=== PATIENT | male | born 1960 | race Caucasian/White ===

== ENCOUNTER 2017-05-07 02:35 | Inpatient (IN) | payer OTHER ==
[2017-05-07] VITALS (11 sets, daily range): BP systolic 134–183; BP diastolic 72–88; PULSE 62–70; RESP 16–18; TEMP 98.3; Ht 160 cm; Wt 70.0 kg
[~2017-05-07] VITALS: Ht 160 cm; Wt 70.0 kg
[~2017-05-07 02:35] MED LIST: CEPH-443 PO; HYDR-3498 PO; IBUP-1542 PO; MUPI22OI2 TOP
--- NOTE | 2017-05-07 03:41 | QN ---
Documentation Comment HPI: 56-year-old man transported here from [place] for direct admission, boarding in the emergency department. He had unilateral paresthesia and right lower extremity weakness today which resolved shortly after ED arrival, he was diagnosed with TIA [place] emergency department and a CT scan of the brain revealed possible acute infarct. He was not a TPA candidate. He was managed with aspirin orally and admitted, but patient is capitated to [facility] so arrangements were made to be admitted to this hospital. Patient is without neurologic complaints at this time, denies fevers or chills, no headache no blurry vision, no chest pain or shortness of breath. Past medical history: Hypertension Physical exam: GENERAL: Well-developed, well-nourished, well-hydrated, in no apparent distress , looks nontoxic in appearance HEENT: Moist mucous membranes, pink conjunctiva, no cervical spine tenderness or step-off deformities, no goiter, no jaundice or icterus, extraocular movements intact without pain. NEURO: Alert and oriented 3, cranial nerves II through XII intact bilaterally, pupils equal round reactive to light, no focal deficits or facial asymmetry, sensation intact distally Strength 5/5 in upper and lower extremities bilaterally CARDIAC: Regular rate and rhythm, no murmurs rubs or gallops LUNGS: Clear bilaterally no wheezing crackles or stridor ABDOMEN: Soft nontender, no guarding, no rigidity, no rebound, no psoas sign no obturator sign. SKIN: Warm and dry to touch, no abrasions, contusions, or hematomas, no lacerations, no ecchymosis, no target lesions, and without ulcers EXTREMITIES: No clubbing cyanosis or edema, calves are bilaterally symmetrical, no Homans sign, no popliteal cord sign. Distal pulses equal and bilateral PSYCH: Normal affect without agitation or irritability Medical decision making: I reviewed recent workup at [facility]. Patient is without complaints. Diagnostic impression: #1) TIA #2) hypertension LINDA DESAI MD May 07, 2017 03:41
[2017-05-07] MEDS ORDERED: morphine 2 MG INJ IV PRN (06:30)
[2017-05-07] MEDS ORDERED: NACL 0.9% 3 ML SYG IV SCH (06:30)
[2017-05-07] MEDS ORDERED: ONDANSETRON 4 MG INJ IV PRN (06:30)
[2017-05-07] MEDS ORDERED: ACETAMINOPHEN 325 MG TAB PO PRN (06:30)
[2017-05-07] MEDS ORDERED: LORAZEPAM 0.5 MG TAB PO PRN (06:30)
--- NOTE | 2017-05-07 08:19 | HP ---
Date/Time of Note Date/Time of Note DATE: 05/07/17 TIME: 08:13 Assessment/Plan VTE Prophylaxis VTE Prophylaxis Intervention: heparin Assessment/Plan Assessment/Plan ASSESSMENT 56-year-old male with left-sided weakness found to have acute versus subacute CVA. Currently his symptoms have resolved. PLAN Continue telemetry monitoring Aspirin, statin and subcu heparin for DVT prophylaxis MRI of the brain as well as MRA of the head and neck 2D echo Neurology consult Physical therapy and speech/swallow evaluation Check A1c and lipid in the morning HPI/ROS Admit Date/Time Admit Date/Time ROS This is a 56-year-old male who initially presented at [facility] complaining of left -sided weakness. Patient was transferred to [facility] because of insurance reason. CT of the head at [facility] showed subacute lacunar infarct. Currently, patient is denying weakness and on physical examination he does not have any focal weakness, facial droop, slurred speech or other signs of stroke. . PMH/Family/Social Social History Smoking Status: Never smoker Exam/Review of Systems Vital Signs Vitals Vital Signs Date Time Temp Pulse Resp B/P Pulse Ox O2 Delivery O2 Flow Rate FiO2 05/07/17 05:51 65 14 125/85 100 Room Air 05/07/17 04:28 98.3 Exam Constitutional: alert, oriented, well developed Head: atraumatic, normocephalic Eyes: EOMI, PERRL Respiratory: clear to auscultation, normal air movement Cardiovascular: nl pulses, regular rate and rhythm Gastrointestinal: non-tender, soft Extremities: normal pulses Medications Medications Current Medications Lorazepam (Ativan) 0.5 mg Q8H PRN PO ANXIETY; Start 05/07/17 at 06:30 Ondansetron HCl (Zofran Inj) 4 mg Q6H PRN IV NAUSEA AND/OR VOMITING; Start at 06:30 Aspirin (Aspirin) 81 mg DAILY PO ; Start 05/07/17 at 09:00 Acetaminophen (Tylenol Tab) 650 mg Q6H PRN PO PAIN LEVEL 1-3 OR FEVER; Start at 06:30 Morphine Sulfate (morphine) 2 mg Q4H PRN IV PAIN LEVEL 7-10; Start 05/07/17 at 06:30 Famotidine (Pepcid) 20 mg Q12 PO ; Start 05/07/17 at 09:00 Heparin Sodium (Porcine) (Heparin (5000 Units/0.5 ml)) 5,000 unit Q12 SC ; Start 05/07/17 at 09:00 Atorvastatin Calcium (Lipitor) 20 mg QHS PO ; Start 05/07/17 at 21:00 LENORE SUAREZ MD May 07, 2017 08:19
[2017-05-07 08:54] LABS: BASOPHILS % 0.6 % (0.0-2.0); EOSINOPHILS # 0.2 10^3/ul (0.0-0.5); EOSINOPHILS % 2.9 % (0.0-7.0); HEMOGLOBIN 14.4 g/dl (14.0-18.0); LYMPHOCYTES # 2.6 10^3/ul (0.8-2.9); MEAN CORPUSCULAR HEMOGLOBIN 30.3 pg (29.0-33.0); MEAN CORPUSCULAR HGB CONC 33.5 g/dl (32.0-37.0); MEAN CORPUSCULAR VOLUME 90.3 fl (82.0-101.0); MONOCYTE # 0.6 10^3/ul (0.3-0.9); MONOCYTES % 8.9 % (0.0-11.0); NEUTROPHILS % 45.3 % (39.0-77.0); PLATELET COUNT 165 10^3/UL (140-415); RED BLOOD COUNT 4.76 10^6/ul (4.70-6.10); RED CELL DISTRIBUTION WIDTH 12.8 % (11.5-14.5); WHITE BLOOD COUNT 6.3 10^3/ul (4.8-10.8)
[2017-05-07 09:18] LABS: ALBUMIN 4.2 g/dl (3.3-4.9); ALBUMIN/GLOBULIN RATIO 1.13; BILIRUBIN,INDIRECT 0.4 mg/dl (0-1.1); BILIRUBIN,TOTAL 0.4 mg/dl (0.2-1.3); CALCIUM 8.9 mg/dl (8.4-10.2); CHOL/HDL RATIO 3.6 RATIO; CREATININE 0.87 mg/dl (0.61-1.24); MAGNESIUM 2.1 mg/dl (1.7-2.5); POTASSIUM 3.7 mmol/L (3.5-5.1); TOTAL PROTEIN 7.9 g/dl (6.1-8.1)
[2017-05-07] MEDS: ASPIRIN 81 MG TAB PO SCH (10:28)
[2017-05-07] MEDS: FAMOTIDINE 20 MG TAB PO SCH ×2 (10:28→21:07)
[2017-05-07] MEDS: HEPARIN 5,000 UNIT/0.5 ML VIAL SC SCH ×2 (10:33→21:14)
--- NOTE | 2017-05-07 17:13 | RADRPT ---
Echocardiogram Report Patient Name: CHANTEL COOK Gender: Male Date: 1960 Study Date: 07-May-2017 Painter Touch Up: Ata Jones [facility] Location: 3305 Ref. Physician: LENORE SUAREZ Quality: Adequate Procedures: Transthoracic echocardiogram with complete 2D, M-Mode, and doppler examination. Indications: Stroke. 2D/M Mode Doppler Measurement Value Normal Ranges Measurement Value Normal Ranges LVIDd 2D 4.6 3.5 - 5.6 cm AV Peak Nate 1.4 m/sec LVIDs 2D 3.1 2.1 - 4.1 cm AV Peak PG 8.0 mmHg FS 2D 33.8 % LVOT Peak Nate 1.0 m/sec LVPWd 2D 0.9 0.6 - 1.1 cm LVOT Peak PG 4.0 mmHg IVSd 2D 1.0 0.6 - 1.1 cm MV E Peak Nate 0.6 m/sec IVS/LVPW 2D 1.1 MV A Peak Nate 0.5 m/sec AoR Diam 2D 2.9 2.0 - 3.7 cm MV E/A 1.3 LA/Ao 2D 1 0 - 1 MV Decel Time 197 msec EDV 2D 98.6 cm3 MV E/A 1.3 ESV 2D 28.7 cm3 TR Peak Nate 2.3 m/sec LA Dimen 2D 3.3 2.3 - 4.0 cm TR Peak PG 21.0 mmHg RVSP 24.0 mmHg Findings Left Ventricle: Normal left ventricular systolic function. Normal left ventricular cavity size. Normal left ventricular wall thickness. Ejection fraction is visually estimated at 60 %. Tissue Doppler/Mitral Doppler indices are consistent with impaired relaxation (Stage I diastolic dysfunction). Right Ventricle: Normal right ventricular size. Normal right ventricular systolic function. Left Atrium: The left atrium is normal in size. Right Atrium: The right atrium is normal in size. Mitral Valve: Mitral valve leaflets appear mildly thickened. Mild mitral annular calcification. Trace mitral regurgitation. Aortic Valve: Normal appearance of the aortic valve. No significant aortic stenosis or insufficiency. Tricuspid Valve: Normal appearance of the tricuspid valve. Estimated peak PA systolic pressure 24 mmHg. There is mild tricuspid regurgitation. Pulmonic Valve: Pulmonic valve not well visualized. There is trace pulmonic regurgitation. Pericardium: Normal pericardium with no significant pericardial effusion. Aorta: Normal aortic root. IVC: Normal size and normal respiratory collapse consistent with normal right atrial pressure. Conclusions 1.Normal left ventricular systolic function. Normal left ventricular cavity size. Normal left ventricular wall thickness. Ejection fraction is visually estimated at 60 %. Tissue Doppler/Mitral Doppler indices are consistent with impaired relaxation (Stage I diastolic dysfunction). 2.Normal appearance of the aortic valve. No significant aortic stenosis or insufficiency. 3.Normal appearance of the tricuspid valve. Estimated peak PA systolic pressure 24 mmHg. There is mild tricuspid regurgitation. 4.Mitral valve leaflets appear mildly thickened. Mild mitral annular calcification. Trace mitral regurgitation. Electronically Signed By: Yohannes Jacobson 07-May-2017 17:12:41 -0700 Patient Name: CHANTEL COOK Study Date: 07-May-2017 [id number]
[2017-05-07] MEDS ORDERED: DOXA2TAB PO (20:36)
[2017-05-07] MEDS ORDERED: HYD25 PO (20:36)
[2017-05-07] MEDS: ATORVASTATIN 20 MG TAB PO SCH (21:07)
[2017-05-07] MEDS: NIFEdipine (XL) 30 MG TAB PO SCH (21:07)
[2017-05-08] VITALS (13 sets, daily range): BP systolic 116–144; BP diastolic 58–95; PULSE 66–100; RESP 17–19
[2017-05-08] MEDS ORDERED: LORAZEPAM 1 MG TAB ONE (03:00)
[2017-05-08 06:39] LABS: BASOPHILS % 0.5 % (0.0-2.0); EOSINOPHILS # 0.1 10^3/ul (0.0-0.5); HEMATOCRIT 42.9 % (42.0-52.0); HEMOGLOBIN 14.9 g/dl (14.0-18.0); LYMPHOCYTES % 32.8 % (15.0-51.0); MEAN CORPUSCULAR HEMOGLOBIN 30.9 pg (29.0-33.0); MEAN CORPUSCULAR HGB CONC 34.7 g/dl (32.0-37.0); MEAN PLATELET VOLUME 10.3 fl (7.4-10.4); MONOCYTE # 0.5 10^3/ul (0.3-0.9); MONOCYTES % 8.7 % (0.0-11.0); NEUTROPHILS % 55.8 % (39.0-77.0); PLATELET COUNT 179 10^3/UL (140-415); RED BLOOD COUNT 4.82 10^6/ul (4.70-6.10); RED CELL DISTRIBUTION WIDTH 12.6 % (11.5-14.5); WHITE BLOOD COUNT 6.1 10^3/ul (4.8-10.8)
[2017-05-08 07:14] LABS: CALCIUM 8.8 mg/dl (8.4-10.2); CREATININE 0.84 mg/dl (0.61-1.24); MAGNESIUM 2.1 mg/dl (1.7-2.5); PHOSPHORUS 3.1 mg/dl (2.5-4.9); POTASSIUM 3.6 mmol/L (3.5-5.1)
[2017-05-08] MEDS: FAMOTIDINE 20 MG TAB PO SCH ×2 (08:49→20:32)
[2017-05-08] MEDS: NIFEdipine (XL) 30 MG TAB PO SCH (08:49)
[2017-05-08] MEDS: ASPIRIN 81 MG TAB PO SCH (08:49)
[2017-05-08] MEDS: HEPARIN 5,000 UNIT/0.5 ML VIAL SC SCH ×2 (08:50→20:36)
--- NOTE | 2017-05-08 10:51 | CONS ---
Date/Time of Note Date/Time of Note DATE: 05/08/17 TIME: 10:47 Assessment/Plan Assessment/Plan Chief Complaint/Hosp Course 56 year old male tx for work up of lacunar infarction. Recommend: ASA 81 mg daily MRI Brain w/o contrast MRA Head/Neck without contrast ECHO w bubble FLP, HBA1C maintain normotensive blood pressure DVT ppx Problems: Consultation Date/Type/Reason Admit Date/Time 05/07/17 Date of Consultation: May 07, 2017 Type of Consultation: Neurology Reason for Consultation CVA evaluation Referring Provider: DARIAN HARTMANN HVAC R TECH Hx of Present Illness 56 year old male admitted from [facility] with left sided weakness with acute vs. sub-acute CVA pending further imaging for work up. 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, DTR's symmetric, nl mental status, nl speech, nl strength Results Result Diagram: 05/08/17 0538 05/08/17 0538 Results 24 hrs Laboratory Tests Test 05/08/17 05:38 White Blood Count 6.1 Red Blood Count 4.82 Hemoglobin 14.9 Hematocrit 42.9 Mean Corpuscular Volume 89.0 Mean Corpuscular Hemoglobin 30.9 Mean Corpuscular Hemoglobin Concent 34.7 Red Cell Distribution Width 12.6 Platelet Count 179 Mean Platelet Volume 10.3 Neutrophils % 55.8 Lymphocytes % 32.8 Monocytes % 8.7 Eosinophils % 2.0 Basophils % 0.5 Nucleated Red Blood Cells % 0.0 Neutrophils # (Manual) 3 Lymphocytes # 2.0 Monocytes # 0.5 Eosinophils # 0.1 Basophils # 0.0 Nucleated Red Blood Cells # 0.0 Sodium Level 139 Potassium Level 3.6 Chloride Level 102 Carbon Dioxide Level 27 Anion Gap 14 Blood Urea Nitrogen 15 Creatinine 0.84 Glucose Level 108 Calcium Level 8.8 Phosphorus Level 3.1 Magnesium Level 2.1 Medications Medications Current Medications Lorazepam (Ativan) 0.5 mg Q8H PRN PO ANXIETY Last administered on 05/08/17t 03: 03; Admin Dose 0.5 MG; Start 05/07/17 at 06:30 Ondansetron HCl (Zofran Inj) 4 mg Q6H PRN IV NAUSEA AND/OR VOMITING; Start at 06:30 Aspirin (Aspirin) 81 mg DAILY PO Last administered on 05/08/17 08:49; Admin Dose 81 MG; Start 05/07/17 at 09:00 Acetaminophen (Tylenol Tab) 650 mg Q6H PRN PO PAIN LEVEL 1-3 OR FEVER; Start at 06:30 Morphine Sulfate (morphine) 2 mg Q4H PRN IV PAIN LEVEL 7-10; Start 05/07/17 at 06:30 Famotidine (Pepcid) 20 mg Q12 PO Last administered on 05/08/17 08:49; Admin Dose 20 MG; Start 05/07/17 at 09:00 Heparin Sodium (Porcine) (Heparin (5000 Units/0.5 ml)) 5,000 unit Q12 SC Last administered on 05/08/17 08:50; Admin Dose 5,000 UNIT; Start 05/07/17 at 09:00 Atorvastatin Calcium (Lipitor) 20 mg QHS PO Last administered on 05/07/17 21: 07; Admin Dose 20 MG; Start 05/07/17 at 21:00 Nifedipine (Procardia Xl) 30 mg BID PO Last administered on 05/08/17 08:49; Admin Dose 30 MG; Start 05/07/17 at 21:00 LOIS NGUYEN MD May 08, 2017 10:51
--- NOTE | 2017-05-08 10:59 | PN ---
Date/Time of Note Date/Time of Note DATE: 05/08/17 TIME: 10:54 Assessment/Plan VTE Prophylaxis VTE Prophylaxis Intervention: heparin, SCD's Lines/Catheters IV Catheter Type (from Nrs): Saline Lock Urinary Cath still in place: No Assessment/Plan Assessment/Plan 56-year-old male with left-sided weakness found to have acute versus subacute CVA. Currently his symptoms have resolved.- possible TIA Accelerated HTN PLAN Tele monitoring, troponin negative MRI brain today Bp controlled with nifedipine but nifedipine not covered by his Insurance.. so I will switch him to amlodipine 10mg paily Resume his home medication of doxazosin and HCTZ will follow up pt will stay in hospital today Subjective 24 Hr Interval Summary Free Text/Dictation BP controlled with Nifedipine , no chest pain, Plan for MRI today Exam/Review of Systems Vital Signs Vitals Vital Signs Date Time Temp Pulse Resp B/P Pulse Ox O2 Delivery O2 Flow Rate FiO2 05/08/17 08:15 97.9 75 17 131/79 97 05/07/17 21:01 Room Air Exam Constitutional: alert, oriented, well developed Head: atraumatic, normocephalic Eyes: EOMI, PERRL Respiratory: clear to auscultation, normal air movement Cardiovascular: nl pulses, regular rate and rhythm Gastrointestinal: non-tender, soft Extremities: normal pulses Results Result Diagram: 05/08/17 0538 05/08/17 0538 Results 24 hrs Laboratory Tests Test 05/08/17 05:38 White Blood Count 6.1 Red Blood Count 4.82 Hemoglobin 14.9 Hematocrit 42.9 Mean Corpuscular Volume 89.0 Mean Corpuscular Hemoglobin 30.9 Mean Corpuscular Hemoglobin Concent 34.7 Red Cell Distribution Width 12.6 Platelet Count 179 Mean Platelet Volume 10.3 Neutrophils % 55.8 Lymphocytes % 32.8 Monocytes % 8.7 Eosinophils % 2.0 Basophils % 0.5 Nucleated Red Blood Cells % 0.0 Neutrophils # (Manual) 3 Lymphocytes # 2.0 Monocytes # 0.5 Eosinophils # 0.1 Basophils # 0.0 Nucleated Red Blood Cells # 0.0 Sodium Level 139 Potassium Level 3.6 Chloride Level 102 Carbon Dioxide Level 27 Anion Gap 14 Blood Urea Nitrogen 15 Creatinine 0.84 Glucose Level 108 Calcium Level 8.8 Phosphorus Level 3.1 Magnesium Level 2.1 Medications Medications Current Medications Lorazepam (Ativan) 0.5 mg Q8H PRN PO ANXIETY Last administered on 05/08/17 03: 03; Admin Dose 0.5 MG; Start 05/07/17 at 06:30 Ondansetron HCl (Zofran Inj) 4 mg Q6H PRN IV NAUSEA AND/OR VOMITING; Start at 06:30 Aspirin (Aspirin) 81 mg DAILY PO Last administered on 05/08/17 08:49; Admin Dose 81 MG; Start 05/07/17 at 09:00 Acetaminophen (Tylenol Tab) 650 mg Q6H PRN PO PAIN LEVEL 1-3 OR FEVER; Start at 06:30 Morphine Sulfate (morphine) 2 mg Q4H PRN IV PAIN LEVEL 7-10; Start 05/07/17 at 06:30 Famotidine (Pepcid) 20 mg Q12 PO Last administered on 05/08/17 08:49; Admin Dose 20 MG; Start 05/07/17 at 09:00 Heparin Sodium (Porcine) (Heparin (5000 Units/0.5 ml)) 5,000 unit Q12 SC Last administered on 05/08/17 08:50; Admin Dose 5,000 UNIT; Start 05/07/17 at 09:00 Atorvastatin Calcium (Lipitor) 20 mg QHS PO Last administered on 05/07/17 21: 07; Admin Dose 20 MG; Start 05/07/17 at 21:00 Nifedipine (Procardia Xl) 30 mg BID PO Last administered on 05/08/17 08:49; Admin Dose 30 MG; Start 05/07/17 at 21:00 Doxazosin Mesylate (Cardura) 2 mg DAILY PO ; Start 05/09/17 at 09:00; Status UNV Hydrochlorothiazide (Hydrochlorothiazide) 25 mg DAILY PO ; Start 05/09/17 at 09: 00; Status UNV VANESSA CORONA MD May 08, 2017 10:59
[2017-05-08] MEDS ORDERED: DOXAZOSIN 2 MG TAB PO SCH (12:00)
[2017-05-08] MEDS: HYDROCHLOROTHIAZIDE 25 MG TAB PO SCH (12:35)
--- NOTE | 2017-05-08 18:23 | RADRPT ---
PROCEDURE: MR Brain without contrast. CLINICAL INDICATION: Unspecified neurologic abnormality. Evaluate for nonacute stroke. TECHNIQUE: Sagittal and axial T1 weighted, axial T2 weighted, coronal GRE, axial diffusion weighte d with ADC mapping, and axial FLAIR imaging without contrast. COMPARISON: None FINDINGS: The study is moderately limited by patient motion. Some sequences were repeated. No diffusion weig hted abnormalities are seen to suggest the presence of acute ischemia or recent infarct. No hypoint ense signal abnormalities are seen on the GRE images to suggest the presence of blood degradation pr oducts. There is no evidence of intracranial hemorrhage, mass effect, or midline shift. No extra-axi al fluid collections are seen. There is probable mild cortical atrophy with areas of abnormal FLAIR / T2 signal in the subcortical and periventricular white matter. While some of these changes may be due to chronic microvascular ischemic change, there are several lesions particularly in the brambila r adiata which are somewhat linear and horizontal in orientation which suggests possible demyelinating disease. The largest of these is in the right centrum semiovale posteriorly and measures 10 x 5 mm . Signal intensity of the brainstem and cerebellum is unremarkable. The globes appear symmetric and intact. Normal flow voids are visible in the proximal intracranial arteries and dural sinuses, indicating patency. There is mild mucoperiosteal thickening of the ethmoids.. IMPRESSION: Mild atrophy and areas of abnormal signal in the subcortical and periventricular white matter. Whil e some of these may be due to chronic microvascular ischemic change, the appearance of several of th e lesions suggests possible demyelinating disease such as MS. Repeat study including postcontrast i maging on the the patient is able to hold still may be helpful. Comparison to any prior MRI studies would also be helpful. RPTAT: [facility]BE Physician Jacoby Date Time Electronically viewed and signed by Physician Jacoby on 05/08/2017 18:22 LE/
--- NOTE | 2017-05-08 18:25 | RADRPT ---
PROCEDURE: MRA Brain. CLINICAL INDICATION: Unspecified neurologic disturbance. Transit ischemic attack. TECHNIQUE: 3-D [id number] MR angiography of the intracranial vasculature was performed without contrast. Multiplanar reformatted and 3-D maximum intensity projection reconstructed images were t hen performed. COMPARISON: None FINDINGS: The study is severely degraded by patient motion. The more distal branches of the anterior and midd le cerebral arteries are suboptimally seen. Left vertebral artery dominance is seen. Anatomy is ot herwise unremarkable. No definite aneurysm or stenosis. Small caliber left A1 segment. Note shoul d be made that small, less than 3 mm, or thrombosed aneurysms may not be well seen with this techniq ue. IMPRESSION: Significantly limits study without definite aneurysm or significant stenosis. RPTAT: [facility] Physician Jacoby Date Time Electronically viewed and signed by Veronica Cerrato Physician on 05/08/2017 18:25 LE/
--- NOTE | 2017-05-08 18:31 | RADRPT ---
PROCEDURE: MRA Neck without contrast. CLINICAL INDICATION: Transient ischemic attack TECHNIQUE: MRA of the major cervical arteries was performed utilizing axial 2D time of flight and localized 3-D [id number] to the carotid bifurcations. No IV contrast was given as ordered. 3-D maximum intensity projection reconstructions. NASCET criteria were used to measure stenoses where i ndicated. COMPARISON: No prior studies are available for comparison. FINDINGS: The study is markedly limited by patient motion. No gross high-grade carotid stenosis is seen. The re is left vertebral artery dominance without gross occlusion. IMPRESSION: Significantly limited study due to patient motion. Correlation with carotid ultrasound may be helpf ul. No gross carotid or vertebral artery stenosis or occlusion. RPTAT: [facility] Physician Jacoby Date Time Electronically viewed and signed by Physician Jacoby on 05/08/2017 18:31 LE/
[2017-05-08] MEDS: ATORVASTATIN 20 MG TAB PO SCH (20:32)
[2017-05-09] VITALS (7 sets, daily range): BP systolic 122–130; BP diastolic 67–72; PULSE 71–95; RESP 17–19
[2017-05-09] MEDS: ASPIRIN 81 MG TAB PO SCH (08:50)
[2017-05-09] MEDS: HYDROCHLOROTHIAZIDE 25 MG TAB PO SCH (08:51)
[2017-05-09] MEDS: FAMOTIDINE 20 MG TAB PO SCH (08:52)
[2017-05-09] MEDS: HEPARIN 5,000 UNIT/0.5 ML VIAL SC SCH (08:53)
[2017-05-09] MEDS ORDERED: HYDROCHLOROTHIAZIDE 25 MG TAB PO SCH (09:00)
[2017-05-09] MEDS ORDERED: DOXAZOSIN 2 MG TAB PO SCH (09:00)
[2017-05-09] MEDS ORDERED: AMLODIPINE 10 MG TAB PO SCH (09:00)
--- NOTE | 2017-05-09 13:42 | PN ---
Date/Time of Note Date/Time of Note DATE: 05/09/17 TIME: 13:41 Assessment/Plan VTE Prophylaxis VTE Prophylaxis Intervention: SCD's Lines/Catheters IV Catheter Type (from Nrs): Saline Lock Urinary Cath still in place: No Assessment/Plan Assessment/Plan acute versus subacute CVA. Currently his symptoms have resolved.- possible TIA Accelerated HTN PLAN Tele monitoring, troponin negative MRI brain negative for acute findings Bp controlled with nifedipine but nifedipine not covered by his Insurance.. so I will switch him to amlodipine 10mg paily Resume his home medication of doxazosin and HCTZ will follow up Exam/Review of Systems Vital Signs Vitals Vital Signs Date Time Temp Pulse Resp B/P Pulse Ox O2 Delivery O2 Flow Rate FiO2 05/09/17 12:17 98.6 92 18 122/72 97 05/07/17 21:01 Room Air Results Result Diagram: 05/08/17 0538 05/08/17 0538 Medications Medications Current Medications Lorazepam (Ativan) 0.5 mg Q8H PRN PO ANXIETY Last administered on 05/08/17 03: 03; Admin Dose 0.5 MG; Start 05/07/17 at 06:30 Ondansetron HCl (Zofran Inj) 4 mg Q6H PRN IV NAUSEA AND/OR VOMITING; Start at 06:30 Aspirin (Aspirin) 81 mg DAILY PO Last administered on 05/09/17 08:50; Admin Dose 81 MG; Start 05/07/17 at 09:00 Acetaminophen (Tylenol Tab) 650 mg Q6H PRN PO PAIN LEVEL 1-3 OR FEVER; Start at 06:30 Morphine Sulfate (morphine) 2 mg Q4H PRN IV PAIN LEVEL 7-10; Start 05/07/17 at 06:30 Famotidine (Pepcid) 20 mg Q12 PO Last administered on 05/09/17 08:52; Admin Dose 20 MG; Start 05/07/17 at 09:00 Heparin Sodium (Porcine) (Heparin (5000 Units/0.5 ml)) 5,000 unit Q12 SC Last administered on 05/09/17 08:53; Admin Dose 5,000 UNIT; Start 05/07/17 at 09:00 Atorvastatin Calcium (Lipitor) 20 mg QHS PO Last administered on 8/22/17at 20: 32; Admin Dose 20 MG; Start 05/07/17 at 21:00 Doxazosin Mesylate (Cardura) 2 mg DAILY@21 PO Last administered on 05/08/17 12 :34; Admin Dose 2 MG; Start 05/08/17 at 12:00 Hydrochlorothiazide (Hydrochlorothiazide) 25 mg DAILY PO Last administered on 08:51; Admin Dose 25 MG; Start 05/08/17 at 12:00 Amlodipine Besylate (Norvasc) 10 mg DAILY PO Last administered on 05/09/17 08: 51; Admin Dose 10 MG; Start 05/09/17 at 09:00 VANESSA CORONA MD May 09, 2017 13:42
--- NOTE | 2017-05-09 13:43 | PDOCDIS ---
Discharge Instructions CONDITION Patient Condition: Good HOME CARE INSTRUCTIONS: Special Diet: low fat, low salt,diet ACTIVITY: Activity Restrictions: Slowly Increase Activity Rest between Activity Avoid heavy lifting Avoid Heavy Housework FOLLOW UP/APPOINTMENTS Follow-up Plan follow up with his own PMD through HMO Insurance in 1-2 week after discharge VANESSA CORONA MD May 09, 2017 13:43
[2017-05-09] MEDS ORDERED: ASPI81TA3 PO (13:44)
[2017-05-09] MEDS ORDERED: ATOR20TA65 PO (13:44)
[2017-05-09] MEDS ORDERED: AMLO-147 PO (13:44)
--- NOTE | 2017-05-09 14:49 | CONS ---
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, DTR's symmetric, nl mental status, nl speech, nl strength Results/Medications Result Diagram: 05/08/17 0538 05/08/17 0538 Medications Current Medications Lorazepam (Ativan) 0.5 mg Q8H PRN PO ANXIETY Last administered on 05/08/17 03: 03; Admin Dose 0.5 MG; Start 05/07/17 at 06:30 Ondansetron HCl (Zofran Inj) 4 mg Q6H PRN IV NAUSEA AND/OR VOMITING; Start at 06:30 Aspirin (Aspirin) 81 mg DAILY PO Last administered on 05/09/17 08:50; Admin Dose 81 MG; Start 05/07/17 at 09:00 Acetaminophen (Tylenol Tab) 650 mg Q6H PRN PO PAIN LEVEL 1-3 OR FEVER; Start at 06:30 Morphine Sulfate (morphine) 2 mg Q4H PRN IV PAIN LEVEL 7-10; Start 05/07/17 at 06:30 Famotidine (Pepcid) 20 mg Q12 PO Last administered on 05/09/17 08:52; Admin Dose 20 MG; Start 05/07/17 at 09:00 Heparin Sodium (Porcine) (Heparin (5000 Units/0.5 ml)) 5,000 unit Q12 SC Last administered on 05/09/17 08:53; Admin Dose 5,000 UNIT; Start 05/07/17 at 09:00 Atorvastatin Calcium (Lipitor) 20 mg QHS PO Last administered on 05/08/17 20: 32; Admin Dose 20 MG; Start 05/07/17 at 21:00 Doxazosin Mesylate (Cardura) 2 mg DAILY@21 PO Last administered on 05/08/17 12 :34; Admin Dose 2 MG; Start 05/08/17 at 12:00 Hydrochlorothiazide (Hydrochlorothiazide) 25 mg DAILY PO Last administered on 08:51; Admin Dose 25 MG; Start 05/08/17 at 12:00 Amlodipine Besylate (Norvasc) 10 mg DAILY PO Last administered on 05/09/17 08: 51; Admin Dose 10 MG; Start 05/09/17 at 09:00 Assessment/Plan Chief Complaint/Hosp Course 56 year old male tx for work up of lacunar infarction. MRI Brain shows chronic microvascular changes no acute infarct. MRA Head/Neck is negative. Recommend: ASA 81 mg daily FLP, HBA1C wnl maintain normotensive blood pressure , BP meds adjusted doubt MRI shows a demyelinating process more likely c/w chronic microvascular changes should follow up w Neurology as outpatient upon dc Problems: LOIS NGUYEN MD May 09, 2017 14:49
== END 2017-05-09 14:45 | disposition home or self-care (01) | DRG 69 ==
LOC: E/R 02:35 → MS3 02:55 → MS4 20:25
PROVIDERS: ADMIT Internal Medicine; ATTEND Internal Medicine
DX: G45.9 Transient cerebral ischemic attack, unspecified (principal); I10 Essential (primary) hypertension; Z79.82 Long term (current) use of aspirin
CPT/HCPCS: 70544; 70549; 70551; 80048; 80053; 80061; 82962; 83036; 83735; 84100; 85025; 92610; 93306; J1644; J2270

== ENCOUNTER 2017-05-11 13:58 | Inpatient (IN) | payer OTHER ==
[~2017-05-11] VITALS: Ht 167.6 cm; Wt 78.8 kg
[~2017-05-11 13:58] MED LIST changes: +AMLO-147 PO; +ASPI81TA3 PO; +ATOR20TA65 PO; +DOXA2TAB PO; +HYD25 PO
--- NOTE | 2017-05-11 14:25 | ERA ---
ER Documentation Chief Complaint Date/Time DATE: 05/11/17 TIME: 14:22 Chief Complaint pt bib family with c/o left arm numbness, just nm'ed for same HPI Patient is a 56-year-old male who presents with sudden onset, constant, moderate left arm numbness for 30 minutes. The patient states that he had the same symptoms 4 days ago and was admitted to the hospital for stroke workup. He was diagnosed as having high cholesterol. The patient has history of hypertension. He denies weakness of the left arm but states that it feels heavy. He also states that both of his legs feel heavy and slightly numb. He states his symptoms started while he was exercising. He denies chest pain, shortness of breath. He denies slurred speech, headache, blurry or double vision. ROS All systems reviewed and are negative except as per history of present illness. Medications Home Meds Reported Medications Atorvastatin Calcium* (Atorvastatin Calcium*) 20 Mg Tablet, 20 MG PO QHS, #30 TAB 05/11/17 Aspirin (Low Dose Aspirin) 81 Mg Tablet.dr, 81 MG PO DAILY, #30 TAB 05/11/17 Amlodipine Besylate* (Amlodipine Besylate*) 10 Mg Tablet, 10 MG PO DAILY, #30 TAB 05/11/17 Discontinued Reported Medications Doxazosin Mesylate* (Doxazosin Mesylate*) 2 Mg Tablet, 2 MG PO DAILY, TAB 05/07/17 Hydrochlorothiazide* (Hydrochlorothiazide*) 25 Mg Tab, 25 MG PO DAILY, #30 TAB 05/07/17 Discontinued Scripts Aspirin (Aspirin) 81 Mg Chew, 81 MG PO DAILY, #100 TAB Prov:VANESSA CORONA MD 05/09/17 Atorvastatin Calcium (Atorvastatin Calcium) 20 Mg Tablet, 20 MG PO QHS, #90 TAB Prov:VANESSA CORONA MD 05/09/17 Amlodipine Besylate* (Amlodipine Besylate*) 10 Mg Tablet, 10 MG PO DAILY, #90 TAB Prov:VANESSA CORONA MD 05/09/17 Cephalexin* (Keflex*) 500 Mg Capsule, 500 MG PO QID for 7 Days, CAP Prov:MARS EVANS PA-C 06/04/15 Ibuprofen* (Motrin*) 600 Mg Tab, 600 MG PO Q6, #20 TAB Prov:MARS EVANS PA-C 06/04/15 Mupirocin* (Bactroban*) 2% -22 Gram Oint...g., 1 APPLIC TOP BID for 7 Days, EA Prov:IZZY MCKNIGHT PA-C 05/25/15 Hydrocodone Bit-Acetaminophen* ([place]*) 5-325 Mg Tab, 1 TAB PO Q6 Y for PAIN, # 20 TAB Prov:IZZY MCKNIGHT PA-C 05/25/15 Cephalexin* (Keflex*) 500 Mg Capsule, 500 MG PO QID for 10 Days, CAP Prov:IZZY MCKNIGHT PA-C 05/25/15 Allergies Allergies: Coded Allergies: No Known Allergy (Unverified , 05/11/17) PMhx/Soc Past medical history: Hyperlipidemia, hypertension, TIA Past surgical history: Denies Social history: Denies tobacco, alcohol or illicit drugs. History of Surgery: Yes (penile prothesis) Anesthesia Reaction: No Hx Neurological Disorder: No Hx Respiratory Disorders: No Hx Cardiac Disorders: Yes (HTN) Hx Psychiatric Problems: No Hx Miscellaneous Medical Probl: Yes (HIGH CHOLESTEROL) Hx Alcohol Use: No Hx Substance Use: No Hx Tobacco Use: No Smoking Status: Former smoker FmHx Family History: No coronary disease, No diabetes Physical Exam Vitals Vital Signs Date Time Temp Pulse Resp B/P Pulse Ox O2 Delivery O2 Flow Rate FiO2 05/11/17 16:49 79 17 128/81 99 Room Air 05/11/17 14:03 99.3 103 18 133/80 98 Physical Exam Const: Alert, no acute distress Head: Atraumatic Eyes: Normal Conjunctiva, no pallor, no icterus ENT: Normal External Ears, Nose and Mouth. Mucous membranes moist Neck: Full range of motion..~ No meningismus. Resp: Clear to auscultation bilaterally, no wheezes, no rales Cardio: Regular rate and rhythm, no murmurs Abd: Soft, non tender, non distended. Skin: No petechiae or rashes Back: No midline or flank tenderness Ext: No cyanosis, or edema Neur: Awake and alert, cranial nerves II through XII intact bilaterally, strength intact in all muscle groups of bilateral upper and lower extremities, diminished sensation to light touch throughout the left arm, no pronator drift, no dysmetria Psych: Normal Mood and Affect Result Diagram: 05/11/17 1430 05/11/17 1430 Results 24 hrs Laboratory Tests Test 05/11/17 14:30 05/11/17 14:53 White Blood Count 6.510^3/ul Red Blood Count 4.7810^6/ul Hemoglobin 14.8g/dl Hematocrit 42.2% Mean Corpuscular Volume 88.3fl Mean Corpuscular Hemoglobin 31.0pg Mean Corpuscular Hemoglobin Concent 35.1g/dl Red Cell Distribution Width 12.3% Platelet Count 45110^3/UL Mean Platelet Volume 9.8fl Neutrophils % 62.6% Lymphocytes % 27.6% Monocytes % 8.4% Eosinophils % 0.6% Basophils % 0.5% Nucleated Red Blood Cells % 0.0/100WBC Neutrophils # (Manual) 4.110^3/ul Lymphocytes # 1.810^3/ul Monocytes # 0.510^3/ul Eosinophils # 0.010^3/ul Basophils # 0.010^3/ul Nucleated Red Blood Cells # 0.010^3/ul Prothrombin Time 12.4Sec Prothrombin Time Ratio 1.0 INR International Normalized Ratio 0.92 Activated Partial Thromboplast Time 31.8Sec Sodium Level 141mmol/L Potassium Level 3.8mmol/L Chloride Level 98mmol/L Carbon Dioxide Level 28mmol/L Anion Gap 19 Blood Urea Nitrogen 20mg/dl Creatinine 0.89mg/dl Glucose Level 110mg/dl Calcium Level 9.4mg/dl Troponin I < 0.012ng/ml Bedside Glucose 115mg/dL Current Medications Medications (Trade) Dose Ordered Sig/Tina Route PRN Reason Start Time Stop Time Status Last Admin Dose Admin Aspirin (Aspirin) 162 mg ONCE ONCE PO 05/11/17 15:00 05/11/17 15:01 DC 05/11/17 15:08 Ondansetron HCl (Zofran Inj) 4 mg ER BRIDGE PRN IV NAUSEA AND/OR VOMITING 05/11/17 17:00 05/12/17 16:59 Acetaminophen (Tylenol Tab) 650 mg ER BRIDGE PRN PO MILD PAIN/FEVER 05/11/17 17:00 05/12/17 16:59 IV Flush (NS 3 ml) 3 ml PER PROTOCOL IV 05/11/17 17:30 Acetaminophen/ Hydrocodone Bitart ([place] (5/325)) 1 tab Q6H PRN PO MODERATE PAIN LEVEL 4-6 05/11/17 17:30 Docusate Sodium (Colace) 100 mg Q12H PRN PO CONSTIPATION 05/11/17 17:30 Magnesium Hydroxide (Milk Of Mag) 30 ml DAILY PRN PO CONSTIPATION 05/11/17 17:30 Bisacodyl (Dulcolax) 5 mg DAILY PRN PO CONSTIPATION 05/11/17 17:30 Enoxaparin Sodium (Lovenox) 40 mg DAILY SC 05/12/17 09:00 Procedures/MDM EKG read by me: Time 1443, rate 96 Rhythm: Normal sinus [place]: Normal Intervals: Normal ST-T waves: no ischemic changes Ectopy: No Q-waves: No Impression: No evidence of ischemia or arrhythmia MDM: Patient is a 56-year-old male recently admitted for TIA with symptoms of left arm and leg numbness. He had an MRI that showed possible demyelinating disease with abnormal white matter signal. He had a MRA that was unremarkable but limited by motion. He had an echo without bubble study that was unremarkable. The patient presented acutely with left arm numbness today. He reports that his symptoms had completely resolved prior to discharge. Code stroke was called and the patient was evaluated by tele-neurology. Tele- neurology did not feel that the patient was a TPA candidate and suspected that the patient has demyelinating disease. He states that the patient could have waxing and waning symptoms in the setting of exertion with demyelinating disease. The patient's symptoms resolved approximately 30 minutes after arriving in the ER, and on reassessment he is asymptomatic. The patient is not on anticoagulation. He was given aspirin. I cannot exclude the possibility of a recurrent TIA, and I believe that the patient would benefit from a bubble study and consideration of anticoagulation until his diagnosis is established. I will admit him for further workup of TIA as well as possible demyelinating disease. Departure Diagnosis: Primary Impression: Left arm numbness Additional Impression: TIA (transient ischemic attack) Qualified Code: G45.9 - Transient cerebral ischemia, unspecified type Condition: DANIEL Huerta MD May 11, 2017 14:22
[2017-05-11 14:40] LABS: BASOPHILS % 0.5 % (0.0-2.0); EOSINOPHILS % 0.6 % (0.0-7.0); HEMATOCRIT 42.2 % (42.0-52.0); HEMOGLOBIN 14.8 g/dl (14.0-18.0); LYMPHOCYTES # 1.8 10^3/ul (0.8-2.9); LYMPHOCYTES % 27.6 % (15.0-51.0); MEAN CORPUSCULAR HGB CONC 35.1 g/dl (32.0-37.0); MEAN CORPUSCULAR VOLUME 88.3 fl (82.0-101.0); MEAN PLATELET VOLUME 9.8 fl (7.4-10.4); MONOCYTE # 0.5 10^3/ul (0.3-0.9); MONOCYTES % 8.4 % (0.0-11.0); NEUTROPHILS % 62.6 % (39.0-77.0); PLATELET COUNT 189 10^3/UL (140-415); RED BLOOD COUNT 4.78 10^6/ul (4.70-6.10); RED CELL DISTRIBUTION WIDTH 12.3 % (11.5-14.5); WHITE BLOOD COUNT 6.5 10^3/ul (4.8-10.8)
--- NOTE | 2017-05-11 14:40 | RADRPT ---
PROCEDURE: Noncontrast CT Head. CLINICAL INDICATION: Code stroke. Acute neurologic deficit. TECHNIQUE: Noncontrast CT of the head was obtained. The administered radiation dose was CTDI vol = 44.4 mGy, DLP = 630.2 mGy-cm. One or more of the following dose reduction techniques were used: Auto mated exposure control, Adjustment of the mA and/or kV according to patient size, or Use of iterativ e reconstruction technique. COMPARISON: There are no similar studies submitted for comparison. Noncontrast MRI of the brain from May 08, 2017. FINDINGS: The ventricles and sulci are within normal limits. There is mild to moderate periventricular hypoatt enuation which is nonspecific but may related to early chronic microvascular changes. There are mild vascular calcifications within the intracranial carotid arteries. There is a probabl e right posterior brambila perivascular space. There is prominent retrocerebellar CSF space suggesting a gabriela cisterna magna or arachnoid cyst whic h are benign findings. There is no loss of lora-white differentiation to suggest acute territorial infarction. There is no acute intracranial hemorrhage. There is no mass effect. No midline shift is identified. The orbits are within normal limits. The paranasal sinuses are well aerated. No destructive osseous lesion is identified. IMPRESSION: No significant change given differences in technique. 1. No loss of lora-white differentiation to suggest acute territorial infarction. Consider CTA of t he head/neck or noncontrast MRI of the brain as clinically warranted. 2. No acute intracranial hemorrhage. 3. Right posterior brambila radiata perivascular space. 4. Mild moderate periventricular hypoattenuation which is nonspecific but may related to early chron ic microvascular changes versus other white matter etiologies. Further findings as detailed above. These findings were discussed with [<Rafa Harris>] on 05/11/2017 at 2:35 PM. RPTAT: PP .Sanjay Oliva MD, Date Time Electronically viewed and signed by .Sanjay Oliva MD, on 05/11/2017 14:39 .F/
[2017-05-11 14:51] LABS: INR 0.92; PROTIME 12.4 Sec (12.2-14.2)
[2017-05-11 14:52] LABS: PARTIAL THROMBOPLASTIN TIME 31.8 Sec (25.0-35.0)
[2017-05-11 14:53] LABS: ANION GAP 19 (8-16); BLOOD UREA NITROGEN 20 mg/dl (7-20); CALCIUM 9.4 mg/dl (8.4-10.2); CARBON DIOXIDE 28 mmol/L (21-31); CHLORIDE 98 mmol/L (97-110); CREATININE 0.89 mg/dl (0.61-1.24); GLUCOSE 110 mg/dl (70-220); POTASSIUM 3.8 mmol/L (3.5-5.1); SODIUM 141 mmol/L (135-144)
--- NOTE | 2017-05-11 14:57 | RADRPT ---
PROCEDURE: XR Chest. CLINICAL INDICATION: Altered mental status TECHNIQUE: Single frontal view of the chest was obtained COMPARISON: None FINDINGS: The heart and mediastinum are within normal limits. The lungs are clear. There is no pleural effusion or pneumothorax. The bones and soft tissue show no acute change. IMPRESSION: No definite abnormalities are identified. RPTAT:AAJJ Karlos Robbins Physician Date Time Electronically viewed and signed by Karlos Robbins Physician on 05/11/2017 14:56 /
[2017-05-11] MEDS ORDERED: AMLO-147 PO (14:58)
[2017-05-11] MEDS ORDERED: ATOR20TA38 PO (14:59)
[2017-05-11] MEDS ORDERED: ASPI-664 PO (14:59)
[2017-05-11] MEDS ORDERED: ASPIRIN 81 MG TAB PO ONE (15:00)
[2017-05-11 15:06] LABS: TROPONIN-I < 0.012 ng/ml (0.00-0.12)
--- NOTE | 2017-05-11 15:32 | STROKE ---
Date/Time of Note Date/Time of Note DATE: 05/11/17 TIME: 17:23 Patient Information General Patient location: emergency Arrival Date Onset Date: May 11, 2017 Age 56 Gender male Weight 77.5 kg Clinical Presentation 56 YO M with left arm and RIGHT leg tingling/numbess today while exercising that has since resolved. He was in the ED 4 days ago after L arm numbness and got MRI Brain without contrast with concern for demyelinating disease. He also got MRA head without evidence on formal report of artery of percheron. His left arm and RIGHT leg tingling have resolved. He was to see a Neurologist for MS work up but has not yet. POC Glucose Glucose Result Bedside Glucose - 72 Hours Test 05/11/17 14:53 Bedside Glucose 115mg/dL (70-220) Vital Signs Vital Signs Vital Signs Date Time Temp Pulse Resp B/P Pulse Ox O2 Delivery O2 Flow Rate FiO2 05/11/17 14:03 99.3 103 18 133/80 98 Patient History Current Medications Allergies: Coded Allergies: No Known Allergy (Unverified , 05/11/17) Labs Hematology Labs Hematology Test 05/11/17 14:30 White Blood Count 6.510^3/ul (4.8-10.8) Red Blood Count 4.7810^6/ul (4.70-6.10) Hemoglobin 14.8g/dl (14.0-18.0) Hematocrit 42.2% (42.0-52.0) Mean Corpuscular Volume 88.3fl (82.0-101.0) Mean Corpuscular Hemoglobin 31.0pg (29.0-33.0) Mean Corpuscular Hemoglobin Concent 35.1g/dl (32.0-37.0) Red Cell Distribution Width 12.3% (11.5-14.5) Platelet Count 62036^3/UL (140-415) Mean Platelet Volume 9.8fl (7.4-10.4) Neutrophils % 62.6% (39.0-77.0) Lymphocytes % 27.6% (15.0-51.0) Monocytes % 8.4% (0.0-11.0) Eosinophils % 0.6% (0.0-7.0) Basophils % 0.5% (0.0-2.0) Nucleated Red Blood Cells % 0.0/100WBC (0.0-0.0) Neutrophils # (Manual) 4.110^3/ul (1.7-7.5) Lymphocytes # 1.810^3/ul (0.8-2.9) Monocytes # 0.510^3/ul (0.3-0.9) Eosinophils # 0.010^3/ul (0.0-0.5) Basophils # 0.010^3/ul (0.0-0.1) Nucleated Red Blood Cells # 0.010^3/ul (0.0-0.0) Chemistry Labs Chemistry Test 05/11/17 14:30 05/11/17 14:53 Sodium Level 141mmol/L (135-144) Potassium Level 3.8mmol/L (3.5-5.1) Chloride Level 98mmol/L (97-110) Carbon Dioxide Level 28mmol/L (21-31) Anion Gap 19 (8-16) Blood Urea Nitrogen 20mg/dl (7-20) Creatinine 0.89mg/dl (0.61-1.24) Glucose Level 110mg/dl (70-220) Calcium Level 9.4mg/dl (8.4-10.2) Troponin I < 0.012ng/ml (0.00-0.12) Bedside Glucose 115mg/dL (70-220) Coagulation Labs: Coagulation Test 05/11/17 14:30 Prothrombin Time 12.4Sec (12.2-14.2) Prothrombin Time Ratio 1.0 INR International Normalized Ratio 0.92 Activated Partial Thromboplast Time 31.8Sec (25.0-35.0) History & Physical History of Present Illness 56 YO M with left arm and RIGHT leg tingling/numbess today while exercising that has since resolved. He was in the ED 4 days ago after L arm numbness and got MRI Brain without contrast with concern for demyelinating disease. He also got MRA head without evidence on formal report of artery of percheron. His left arm and RIGHT leg tingling have resolved. He was to see a Neurologist for MS work up but has not yet. NIH Stroke Scale NIH Stroke Scale Total Score: 0 Date/Time Recorded DATE: 05/11/17 TIME: 17:03 Submitted By Bobo Mcmillan Imaging Review Imaging Reviewed: Yes Date/Time Imaging Reviewed DATE: 05/11/17 TIME: 15:03 Imaging Findings No ICH. Concern for demyelinating disease vs chronic microvascular disease t-PA Administration Recommendation: No Weight 77.5 kg Recommedation submitted by Bobo Nails Reason t-PA not Recommended Not a stroke. t-PA Not Recommended Date/Time 05/11/17 1503 Recommendations Impression Diagnosis 56 YO M with transient left arm and RIGHT leg isolated numbness. The only possible arterial etiology of thia that could cause stroke is an artery of [place]cheron TIA, which the patient does not have based on recent MRA Head. Artery of percheron strokes also present with encephalopathy and other midbrain pathology signs, which he does not have. Recent MRI Brain concerning for MS, and MRI Brain w/ and w/o contrast would show active demyelination that may be treated with steroids. - MRI Brain with and without contrast - Local Neuro consultation for MS work-up and further recs - No further neurodiagnostics indicated for TIA based on history BOBO NAILS MD May 11, 2017 15:32
[2017-05-11] MEDS ORDERED: ACETAMINOPHEN 325 MG TAB PO PRN (17:00)
[2017-05-11] MEDS ORDERED: ONDANSETRON 4 MG INJ IV PRN (17:00)
[2017-05-11] MEDS ORDERED: MAGNESIUM HYDROXIDE 30ML CUP PO PRN (17:30)
[2017-05-11] MEDS ORDERED: BISACODYL (EC) 5 MG TAB PO PRN (17:30)
[2017-05-11] MEDS ORDERED: HYDROCODONE/APAP (5/325) TAB PO PRN (17:30)
[2017-05-11] MEDS ORDERED: NACL 0.9% 3 ML SYG IV SCH (17:30)
[2017-05-11] MEDS ORDERED: DOCUSATE SODIUM 100 MG CAP PO PRN (17:30)
--- NOTE | 2017-05-11 18:43 | HP ---
Date/Time of Note Date/Time of Note DATE: 05/11/17 TIME: 18:35 Assessment/Plan VTE Prophylaxis VTE Prophylaxis Intervention: SCD's Lines/Catheters IV Catheter Type (from Nrsg): Saline Lock Assessment/Plan Assessment/Plan 56 yo M with 5 days of L arm and R leg tingling. Here earlier this week and diagnosed as likely microvascular etio though demyelinating disease not ruled out. PLAN MRI brain WWO PT eval neuro eval once neuroimaging returns HPI/ROS Admit Date/Time Admit Date/Time Hx of Present Illness CC L arm and R arm tingling HPI 56 yo M with pmhx HTN, admitted here 8.-23 for L arm and R leg tingling returns as symptoms have not resolved. Tingling not worsened by hot showers. Does think arm might be a bit clumsy. Symptoms also possibly exacerbated by tilting head downward. Pt evaluated by tele neuro in ER, no need for TPA. Of note, pt seen by neuro during admit earlier this week and symptoms thought to be more likely microvascular in origin than demyelinating. PMH/Family/Social Past Medical History as per HPI Social History Smoking Status: Former smoker Exam/Review of Systems Vital Signs Vitals Vital Signs Date Time Temp Pulse Resp B/P Pulse Ox O2 Delivery O2 Flow Rate FiO2 05/11/17 16:49 79 17 128/81 99 Room Air 05/11/17 14:03 99.3 Exam Exam nad EOMI face symmetrical MMMno mrg lungs clear abd soft no rashes 4+/5 strength LUE and RLE, 5/5 LLE and RUE 2+ patellar reflexes bl labs reviewed, Cr nl Labs Result Diagram: 05/11/17 1430 05/11/17 1430 Medications Medications Current Medications Acetaminophen/ Hydrocodone Bitart ([place] (5/325)) 1 tab Q6H PRN PO MODERATE PAIN LEVEL 4-6; Start 05/11/17 at 17:30 Docusate Sodium (Colace) 100 mg Q12H PRN PO CONSTIPATION; Start 05/11/17 at 17: 30 Magnesium Hydroxide (Milk Of Mag) 30 ml DAILY PRN PO CONSTIPATION; Start at 17:30 Bisacodyl (Dulcolax) 5 mg DAILY PRN PO CONSTIPATION; Start 05/11/17 at 17:30 Enoxaparin Sodium (Lovenox) 40 mg DAILY SC ; Start 05/12/17 at 09:00 VICTORIANO ORONA MD May 11, 2017 18:43
[2017-05-11] MEDS ORDERED: LORAZEPAM 1 MG TAB PO PRN (19:00)
[2017-05-11 19:41] VITALS: TEMP 98
[2017-05-11] MEDS: ATORVASTATIN 20 MG TAB PO SCH (20:59)
[2017-05-11 21:10] VITALS: PULSE 90
[2017-05-11 21:29] VITALS: Ht 167.6 cm; Wt 78.8 kg
[2017-05-12] VITALS (10 sets, daily range): BP systolic 118–143; BP diastolic 68–83; PULSE 69–105; RESP 16–20
--- NOTE | 2017-05-12 04:25 | RADRPT ---
PROCEDURE: MR Brain with and without contrast. CLINICAL INDICATION: Parasthesias. Prior MRI suggesting possible demyelinating disease. TECHNIQUE: Sagittal and axial T1 weighted, axial diffusion weighted, T2, and coronal gradient and axial and sagittal FLAIR imaging before contrast. Multiplanar T1-weighted imaging after injection o f 10 cc of intravenous Mag[place]. 3 [place] scanner. COMPARISON: CT from 05/11/2017 and MRI from 05/08/2017 FINDINGS: Again seen is relatively little cortical atrophy and normal size ventricles but multiple areas of ab normal signal in the white matter of the hemispheres bilaterally. As noted on prior MRI, many of th kat areas of abnormal signal are in the periventricular white matter, relatively focal, and some are horizontal in orientation. As noted on prior MRI, the largest lesion on the right is in the right brambila radiata and measures 10 x 4 mm. Largest lesion on the left is adjacent to the occipital horn and measures 1.6 cm in length and 8 mm in short axis diameter. There are several foci of restricted diffusion in the subcortical white matter of the posterior frontal and parietal lobes. These are n ot as well seen on the prior study. No enhancing lesion is seen, however. T2-weighted images show small probable lesions in the posterior nayan and left cerebellar hemisphere, also without enhancemen t or restricted diffusion. There is no evidence for territorial infarction, hemorrhage, or mass. No leptomeningeal enhancement is seen. Grossly patent intracranial flow voids. Patent dural sinuse s. The visualized paranasal sinuses and mastoids are essentially clear. IMPRESSION: Multiple foci of abnormal white matter signal predominately in the subcortical white matter of both hemispheres but also seen in the brainstem left cerebellum. As mentioned previously, several of the se have a horizontal orientation concerning for possible demyelinating disease. Few small areas of restricted diffusion within lesions in the posterior left frontal and parietal subcortical white mat ter which could be due to more active lesions. No enhancing lesions are seen, however. Demyelinati ng disease such as MS or ADEM would be primary considerations. No definite enhancing lesions. RPTAT: HLBE Physician Jacoby Date Time Electronically viewed and signed by Veronica Cerrato Physician on 05/12/2017 04:17 ALEXANDRE/
[2017-05-12] MEDS ORDERED: ENOXAPARIN 40 MG/0.4 ML SYG SC SCH (09:00)
[2017-05-12] MEDS: ASPIRIN (EC) 81 MG TAB PO SCH (09:41)
[2017-05-12] MEDS: AMLODIPINE 10 MG TAB PO SCH (09:42)
--- NOTE | 2017-05-12 13:07 | CONS ---
Date/Time of Note Date/Time of Note DATE: 05/12/17 TIME: 12:59 Assessment/Plan Assessment/Plan Chief Complaint/Hosp Course Neuroexam AOx3, fluent speech, CN II-XII intact, perrl 4-2 mm, Motor 5/5, normal bulk tone , sens intact LT, pain, vibration, DTR 2 UE, 3+LE, no babinski, coord OK, gait slightly limping, hx of twisted right ankle, normal tandem A/P: Transient weakness (per pt cramp, not weakness) LUE, RLE. MRI brain suggestive of MS. Hx of vertigo, transient numbness in the past. Will do LP with MS panel, also MRI C-T-spine with contrast Problems: Consultation Date/Type/Reason Admit Date/Time Type of Consultation: neurology Reason for Consultation Poss TIA, poss MS on MRI Hx of Present Illness 56 y/o male presented with right LE, left UE weakness x several minutes. On questioning states thaty had a cramp, no definite weakness, nor numbness. Similar "cramp" LUE several days ago. MRI suggestive of MS. Hx of vertigo 2-3 mo ago, occasional tingling in the fingertips. No complaints now Constitutional: no complaints Eyes: no complaints ENT: no complaints Respiratory: no complaints Cardiovascular: no complaints Gastrointestinal: no complaints Genitourinary: no complaints Skin: no complaints Endocrine: no complaints Psychological: no complaints Past Medical History Medical History: hypertension Past Surgical History Past Surgical Hx: no surgical history Family History Significant Family History: no pertinent family hx Social History Alcohol Use: none Smoking Status: Never smoker Drug Use: none Exam/Review of Systems Vital Signs Vitals Vital Signs Date Time Temp Pulse Resp B/P Pulse Ox O2 Delivery O2 Flow Rate FiO2 05/12/17 12:04 82 05/12/17 11:10 98.0 16 123/80 98 05/12/17 04:00 Room Air Intake and Output 05/11/17 05/11/17 05/12/17 15:00 23:00 07:00 Intake Total 400 ml Balance 400 ml Exam Constitutional: alert, oriented, well developed Psych: nl mood/affect Head: atraumatic, normocephalic Eyes: nl conjunctiva, nl lids, nl sclera ENMT: nl external ears & nose Neck: non-tender, supple Respiratory: clear to auscultation Cardiovascular: regular rate and rhythm Gastrointestinal: non-tender, soft Musculoskeletal: nl extremities to inspection Results Result Diagram: 05/11/17 1430 05/11/17 1430 Results 24 hrs Laboratory Tests Test 05/11/17 14:30 05/11/17 14:53 White Blood Count 6.5 Red Blood Count 4.78 Hemoglobin 14.8 Hematocrit 42.2 Mean Corpuscular Volume 88.3 Mean Corpuscular Hemoglobin 31.0 Mean Corpuscular Hemoglobin Concent 35.1 Red Cell Distribution Width 12.3 Platelet Count 189 Mean Platelet Volume 9.8 Neutrophils % 62.6 Lymphocytes % 27.6 Monocytes % 8.4 Eosinophils % 0.6 Basophils % 0.5 Nucleated Red Blood Cells % 0.0 Neutrophils # (Manual) 4.1 Lymphocytes # 1.8 Monocytes # 0.5 Eosinophils # 0.0 Basophils # 0.0 Nucleated Red Blood Cells # 0.0 Prothrombin Time 12.4 Prothrombin Time Ratio 1.0 INR International Normalized Ratio 0.92 Activated Partial Thromboplast Time 31.8 Sodium Level 141 Potassium Level 3.8 Chloride Level 98 Carbon Dioxide Level 28 Anion Gap 19 H Blood Urea Nitrogen 20 Creatinine 0.89 Glucose Level 110 Calcium Level 9.4 Troponin I < 0.012 Bedside Glucose 115 Medications Medications Current Medications Acetaminophen/ Hydrocodone Bitart ([place] (5/325)) 1 tab Q6H PRN PO MODERATE PAIN LEVEL 4-6; Start 05/11/17 at 17:30 Docusate Sodium (Colace) 100 mg Q12H PRN PO CONSTIPATION; Start 05/11/17 at 17: 30 Magnesium Hydroxide (Milk Of Mag) 30 ml DAILY PRN PO CONSTIPATION; Start at 17:30 Bisacodyl (Dulcolax) 5 mg DAILY PRN PO CONSTIPATION; Start 05/11/17 at 17:30 Enoxaparin Sodium (Lovenox) 40 mg DAILY SC Last administered on 05/12/17 09:47 ; Admin Dose 40 MG; Start 05/12/17 at 09:00 Amlodipine Besylate (Norvasc) 10 mg DAILY PO Last administered on 05/12/17 09: 42; Admin Dose 10 MG; Start 05/12/17 at 09:00 Aspirin (Halfprin) 81 mg DAILY PO Last administered on 05/12/17 09:41; Admin Dose 81 MG; Start 05/12/17 at 09:00 Atorvastatin Calcium (Lipitor) 20 mg QHS PO Last administered on 05/11/17 20: 59; Admin Dose 20 MG; Start 05/11/17 at 21:00 Lorazepam (Ativan) 2 mg ONCE PRN PO anxiety; Start 05/11/17 at 19:00; Stop at 18:59 TAY BUTLER MD May 12, 2017 13:07
--- NOTE | 2017-05-12 16:13 | PN ---
Date/Time of Note Date/Time of Note DATE: 05/12/17 TIME: 16:11 Assessment/Plan VTE Prophylaxis VTE Prophylaxis Intervention: SCD's Lines/Catheters IV Catheter Type (from Nrsg): Saline Lock Assessment/Plan Assessment/Plan 56 yo M with 5 days of L arm and R leg tingling. MRI brain wwo concerning for demyelinating condition PLAN neuro on cs, appreciate recs cont home meds dc tele Subjective 24 Hr Interval Summary Free Text/Dictation Feels about the same. MRI results briefly dw patient and family Exam/Review of Systems Vital Signs Vitals Vital Signs Date Time Temp Pulse Resp B/P Pulse Ox O2 Delivery O2 Flow Rate FiO2 05/12/17 12:04 82 05/12/17 11:10 98.0 16 123/80 98 05/12/17 04:00 Room Air Intake and Output 05/11/17 05/11/17 05/12/17 15:00 23:00 07:00 Intake Total 400 ml Balance 400 ml Exam nad no mrg lungs clear abd soft no rashes Results Result Diagram: 05/11/17 1430 05/11/17 1430 Medications Medications Current Medications Acetaminophen/ Hydrocodone Bitart ([place] (5/325)) 1 tab Q6H PRN PO MODERATE PAIN LEVEL 4-6; Start 05/11/17 at 17:30 Docusate Sodium (Colace) 100 mg Q12H PRN PO CONSTIPATION; Start 05/11/17 at 17: 30 Magnesium Hydroxide (Milk Of Mag) 30 ml DAILY PRN PO CONSTIPATION; Start at 17:30 Bisacodyl (Dulcolax) 5 mg DAILY PRN PO CONSTIPATION; Start 05/11/17 at 17:30 Amlodipine Besylate (Norvasc) 10 mg DAILY PO Last administered on 05/12/17 09: 42; Admin Dose 10 MG; Start 05/12/17 at 09:00 Aspirin (Halfprin) 81 mg DAILY PO Last administered on 05/12/17 09:41; Admin Dose 81 MG; Start 05/12/17 at 09:00 Atorvastatin Calcium (Lipitor) 20 mg QHS PO Last administered on 05/11/17 20: 59; Admin Dose 20 MG; Start 05/11/17 at 21:00 Lorazepam (Ativan) 2 mg ONCE PRN PO anxiety; Start 05/11/17 at 19:00; Stop at 18:59 VICTORIANO ORONA MD May 12, 2017 16:13
[2017-05-12] MEDS: ATORVASTATIN 20 MG TAB PO SCH (20:47)
[2017-05-13 02:00] VITALS: BP_SYST 139; BP_SYST 153; BP_DIAS 74; BP_DIAS 84; PULSE 68; RESP 18; RESP 20
[2017-05-13 07:54] VITALS: BP 132/75; RESP 16
[2017-05-13] MEDS: ASPIRIN (EC) 81 MG TAB PO SCH (08:59)
[2017-05-13] MEDS: AMLODIPINE 10 MG TAB PO SCH (09:00)
--- NOTE | 2017-05-13 12:00 | PN ---
Date/Time of Note Date/Time of Note DATE: 05/13/17 TIME: 11:59 Assessment/Plan VTE Prophylaxis VTE Prophylaxis Intervention: SCD's Lines/Catheters IV Catheter Type (from Nrsg): Saline Lock Assessment/Plan Assessment/Plan 56 yo M with 5 days of L arm and R leg tingling. MRI brain wwo concerning for demyelinating condition PLAN neuro on cs, appreciate recs LP and results of MRIs C/T/L spine pending cont home meds dc tele Subjective 24 Hr Interval Summary Free Text/Dictation Feels about the same. MRIs done last night but not read Exam/Review of Systems Vital Signs Vitals Vital Signs Date Time Temp Pulse Resp B/P Pulse Ox O2 Delivery O2 Flow Rate FiO2 05/13/17 07:54 98.9 71 16 132/75 98 05/13/17 02:00 Room Air Exam nad no mrg lungs clear abd soft no rashes Results Result Diagram: 05/11/17 1430 05/11/17 1430 Medications Medications Current Medications Acetaminophen/ Hydrocodone Bitart ([place] (5/325)) 1 tab Q6H PRN PO MODERATE PAIN LEVEL 4-6; Start 05/11/17 at 17:30 Docusate Sodium (Colace) 100 mg Q12H PRN PO CONSTIPATION; Start 05/11/17 at 17: 30 Magnesium Hydroxide (Milk Of Mag) 30 ml DAILY PRN PO CONSTIPATION; Start at 17:30 Bisacodyl (Dulcolax) 5 mg DAILY PRN PO CONSTIPATION; Start 05/11/17 at 17:30 Amlodipine Besylate (Norvasc) 10 mg DAILY PO Last administered on 05/13/17 09: 00; Admin Dose 10 MG; Start 05/12/17 at 09:00 Aspirin (Halfprin) 81 mg DAILY PO Last administered on 05/13/17 08:59; Admin Dose 81 MG; Start 05/12/17 at 09:00 Atorvastatin Calcium (Lipitor) 20 mg QHS PO Last administered on 05/12/17 20: 47; Admin Dose 20 MG; Start 05/11/17 at 21:00 VICTORIANO ORONA MD May 13, 2017 12:00
[2017-05-13] MEDS ORDERED: LIDOCAINE 1% (MDV) 20 ML INJ ONE (12:55)
--- NOTE | 2017-05-13 13:21 | CONS ---
Date/Time of Note Date/Time of Note DATE: 05/13/17 TIME: 13:20 Consult Date/Type/Reason Admit Date/Time May 11, 2017 at 16:43 Initial Consult Date Type of Consultation: neurology Subjective 3-4 min left UE, right LE tingling last night Objective Vital Signs Date Time Temp Pulse Resp B/P Pulse Ox O2 Delivery O2 Flow Rate FiO2 05/13/17 07:54 98.9 71 16 132/75 98 05/13/17 02:00 Room Air Results/Medications Result Diagram: 05/11/17 1430 05/11/17 1430 Medications Current Medications Acetaminophen/ Hydrocodone Bitart ([place] (5/325)) 1 tab Q6H PRN PO MODERATE PAIN LEVEL 4-6; Start 05/11/17 at 17:30 Docusate Sodium (Colace) 100 mg Q12H PRN PO CONSTIPATION; Start 05/11/17 at 17: 30 Magnesium Hydroxide (Milk Of Mag) 30 ml DAILY PRN PO CONSTIPATION; Start at 17:30 Bisacodyl (Dulcolax) 5 mg DAILY PRN PO CONSTIPATION; Start 05/11/17 at 17:30 Amlodipine Besylate (Norvasc) 10 mg DAILY PO Last administered on 05/13/17 09: 00; Admin Dose 10 MG; Start 05/12/17 at 09:00 Aspirin (Halfprin) 81 mg DAILY PO Last administered on 05/13/17 08:59; Admin Dose 81 MG; Start 05/12/17 at 09:00 Atorvastatin Calcium (Lipitor) 20 mg QHS PO Last administered on 05/12/17 20: 47; Admin Dose 20 MG; Start 05/11/17 at 21:00 Assessment/Plan Chief Complaint/Hosp Course Neuroexam AOx3, fluent speech, CN II-XII intact, perrl 4-2 mm, Motor 5/5, normal bulk tone , sens intact LT, pain, vibration, DTR 2 UE, 3+LE, no babinski, coord OK, gait slightly limping, hx of twisted right ankle, normal tandem A/P: Transient weakness (per pt cramp, not weakness) LUE, RLE, has tingling last night. MRI brain suggestive of MS. Hx of vertigo, transient numbness in the past. Will do LP with MS panel, also MRI C-T-spine with contrast. OK for d/c after done, if no abnormality on imaging, out pt f/u Problems: TAY BUTLER MD May 13, 2017 13:21
--- NOTE | 2017-05-13 13:41 | RADRPT ---
PROCEDURE: MR Cervical Spine contrast. CLINICAL INDICATION: Demyelination. TECHNIQUE: Multiplanar multisequence MRI of the cervical spine was performed before and following t he intravenous administration of 10 cc of Magnevist. COMPARISON: There are no similar studies submitted for comparison. FINDINGS: There is normal cervical lordosis The vertebral body heights are maintained. There is normal alignment. There is no destructive osseous lesion.There is no abnormal bone marrow edema. There is disk desiccation from C2-C3 to C6-C7. The spinal cord is normal in caliber. there are multiple areas of intramedullary T2 hyperintensity within the spinal cord. These are noted at the left greater than right dorsolateral mid C3, central and left lateral C3-C4, central the C4-C5, central mid C6, left lateral C6-C7, central mid C7, and the ventral C7-T1 levels. Findings are suggestive of demyelination. There is no abnormal spinal cord enhancement. C2-C3 : There is mild disk space narrowing. There is 1 mm circumferential disk osteophyte complex w ithout spinal canal stenosis. There is severe left facet arthropathy with bilateral uncovertebral h ypertrophy causing moderate to severe left without right foraminal stenosis. This likely affects th e exiting left C3 nerve root. C3-C4 : There is mild disk space narrowing. There is a 2 mm circumferential disk osteophyte complex with mild spinal canal stenosis. There is severe left and moderate facet arthropathy and bilateral uncovertebral hypertrophy causing severe left with mild right foraminal stenosis. This affects the exiting left C4 nerve root. C4-C5 : There is mild disk space narrowing. There is a 1 mm circumferential disk osteophyte complex without spinal canal stenosis. There is severe bilateral facet arthropathy and bilateral uncoverteb ral hypertrophy causing severe right with moderate to severe left foraminal stenosis. This affects the exiting bilateral C5 nerve roots. C5-C6 : There is mild disk space narrowing. There is a 1 mm circumferential disk osteophyte complex without spinal canal stenosis. There is severe left and moderate facet arthropathy and bilateral u ncovertebral hypertrophy causing severe left and moderate to severe right foraminal stenosis. This affects the exiting bilateral C6 nerve roots. C6-C7 : There is mild to moderate disk space narrowing. There is a 2 mm circumferential disk osteop hyte complex without spinal canal stenosis. There is severe left and moderate facet arthropathy and bilateral uncovertebral hypertrophy causing severe bilateral foraminal stenosis. This affects the exiting bilateral C7 nerve roots. C7-T1 : There is mild disk space narrowing. There is a 1 mm circumferential disk osteophyte complex without spinal canal stenosis. There is moderate bilateral facet arthropathy and bilateral uncover tebral hypertrophy causing mild to moderate left without right foraminal stenosis. The paravertebral musculature are within normal limits. IMPRESSION: 1. Multiple areas of intramedullary T2 hyperintensity as detailed above suggesting demyelination. T here is no abnormal spinal cord enhancement. 2. No abnormal bone marrow edema. 3. Multilevel bilateral foraminal stenosis affecting the exiting left C3, left C4, bilateral C5, lelo ateral C6, and bilateral C7 nerve roots as detailed above. Further findings as detailed above. RPTAT: HVF .Sanjay Oliva MD, Date Time Electronically viewed and signed by .Sanjay Oliva MD, on 05/12/2017 17:14 .F/
--- NOTE | 2017-05-13 13:41 | RADRPT ---
PROCEDURE: MR Thoracic Spine contrast. CLINICAL INDICATION: Demyelination. TECHNIQUE: Multiplanar multisequence MRI of the thoracic spine performed was performed before and following the intravenous administration of 10 cc of Magnevist. COMPARISON: There are no similar studies submitted for comparison. FINDINGS: There is preservation of the normal thoracic kyphosis. The vertebral body heights are maintained. There is normal alignment. There is no destructive osseous lesion.There is no abnormal bone marrow edema. There is disk desiccation within the mid thoracic spine with multilevel mild disk space narrowing. There are multiple areas of intramedullary T2 hyperintensity. These are noted at the central mid T5 , right lateral mid T7, central mid T8, right lateral T9-T10, central T10-T11, and left mid T12 leve ls. There is no abnormal spinal cord enhancement. There are multilevel minimal disk bulges with mild bilateral facet arthropathy without spinal canal or bilateral foraminal stenosis. The paraspinal musculature are within normal limits. IMPRESSION: 1. Multiple areas of intramedullary T2 hyperintensity suggesting demyelination. There is no abnorm al spinal cord enhancement 2. No acute compression fracture or abnormal bone marrow edema. 3. Mild multilevel degenerative changes without spinal canal or bilateral foraminal stenosis. Further findings as detailed above. RPTAT: HVF .Sanjay Oliva MD, MD Date Time Electronically viewed and signed by .Sanjay Oliva MD, on 05/12/2017 17:14 .F/
[2017-05-13 14:39] VITALS: BP 145/68; RESP 18
[2017-05-13 16:05] LABS: GLUCOSE,CSF 58 mg/dl (50-80)
[2017-05-13 16:08] LABS: CSF MN% 66.7 %; CSF PMN% 33.3 %
--- NOTE | 2017-05-13 16:12 | RADRPT ---
PROCEDURE: Fluoroscopic guided lumbar puncture. CLINICAL INDICATION: Weakness. Multiple sclerosis. TECHNIQUE: Prior to the procedure, informed consent was obtained. Risks including bleeding and in fection were explained to the patient. The patient understood and was willing to proceed. A proced ural pause was performed. The patient's name, date of , and procedure to be performed were rj ified. Using local anesthetic, sterile technique, and fluoroscopic guidance, a 22-gauge spinal needle was a dvanced into the thecal sac at the L4-5 level. Opening pressure was 5 cm of water. 6 mL of clear c erebrospinal fluid was aspirated and sent for laboratory analysis. The needle was removed. A dress ing was applied. The patient tolerated the procedure well. A total of 0.1 minutes of fluoroscopy time was used. 5 images were obtained with image intensifier. COMPARISON: None. FINDINGS: Images demonstrate the needle at the L4-5 level in the thecal sac. IMPRESSION: Satisfactory fluoroscopic guided lumbar puncture. The opening pressure was 10 cm of water. RPTAT: QQ .Kwasi Chamberlain MD, Date Time Electronically viewed and signed by .Kwasi Chamberlain MD, on 05/13/2017 16:11 .R/
[2017-05-13 16:23] LABS: CSF COLOR COLORLESS; CSF#TUBE COUNT TUBE#3; CSF#TUBES REC'D 3
[2017-05-13 20:00] VITALS: BP 131/75; RESP 18
[2017-05-13] MEDS: ATORVASTATIN 20 MG TAB PO SCH (20:35)
[2017-05-14 02:23] VITALS: BP 130/75; RESP 18
[2017-05-14 07:41] VITALS: BP 141/67; RESP 20
[2017-05-14] MEDS: ASPIRIN (EC) 81 MG TAB PO SCH (08:21)
[2017-05-14] MEDS: AMLODIPINE 10 MG TAB PO SCH (08:21)
[2017-05-14] MEDS ORDERED: FINA5TAB4 PO (10:38)
--- NOTE | 2017-05-14 11:37 | PN ---
Date/Time of Note Date/Time of Note DATE: 05/14/17 TIME: 11:24 Assessment/Plan VTE Prophylaxis VTE Prophylaxis Intervention: heparin Lines/Catheters IV Catheter Type (from Nrsg): Saline Lock Assessment/Plan Chief Complaint/Hosp Course Assessment/Plan: 56 yo M with 5 days of L arm and R leg tingling. MRI brain wwo concerning for demyelinating condition. 1. Arm and leg tingling: Symptoms still does not, but patient ambulating well. Neuro on cs, appreciate recs, MRI T-spine does show possible demyelination in T2 area. f/u LP results Will discuss MRI T and C-spine results with neurology team as well -cont home meds 2. Hypertension: Blood pressure stable -Continue Norvasc 3. DVT prophylaxis: Heparin subcu Problems: Subjective 24 Hr Interval Summary Free Text/Dictation Patient still having some tingling symptoms. MRI T and C-spine was performed with results noted. Exam/Review of Systems Vital Signs Vitals Vital Signs Date Time Temp Pulse Resp B/P Pulse Ox O2 Delivery O2 Flow Rate FiO2 05/14/17 07:41 98.5 88 20 141/67 98 05/13/17 02:00 Room Air Intake and Output 05/13/17 05/13/17 05/14/17 15:00 23:00 07:00 Intake Total 600 ml 1800 ml 700 ml Output Total 1200 ml Balance 600 ml 1800 ml -500 ml Exam nad, sitting in chair Pupils equal round reactive to light, extraocular muscles intact no mrg lungs clear abd soft no rashes Results Result Diagram: 05/11/17 1430 05/11/17 1430 Results 24 hrs Laboratory Tests Test 05/13/17 12:07 CSF Tubes Submitted 3 CSF Volume 7.0 CSF Appearance CLEAR CSF Color COLORLESS CSF WBC 3 CSF RBC 0 CSF Cell Count Tube # TUBE#3 CSF Mononuclear Cells % (Auto) 66.7 CSF Polynuclear WBCs (%) 33.3 CSF Glucose 58 CSF Total Protein 69 H Medications Medications Current Medications Acetaminophen/ Hydrocodone Bitart ([place] (5/325)) 1 tab Q6H PRN PO MODERATE PAIN LEVEL 4-6; Start 05/11/17 at 17:30 Docusate Sodium (Colace) 100 mg Q12H PRN PO CONSTIPATION; Start 05/11/17 at 17: 30 Magnesium Hydroxide (Milk Of Mag) 30 ml DAILY PRN PO CONSTIPATION; Start at 17:30 Bisacodyl (Dulcolax) 5 mg DAILY PRN PO CONSTIPATION; Start 05/11/17 at 17:30 Amlodipine Besylate (Norvasc) 10 mg DAILY PO Last administered on 05/14/17 08: 21; Admin Dose 10 MG; Start 05/12/17 at 09:00 Aspirin (Halfprin) 81 mg DAILY PO Last administered on 05/14/17 08:21; Admin Dose 81 MG; Start 05/12/17 at 09:00 Atorvastatin Calcium (Lipitor) 20 mg QHS PO Last administered on 05/13/17 20: 35; Admin Dose 20 MG; Start 05/11/17 at 21:00 KENRICK GORE May 14, 2017 11:35
--- NOTE | 2017-05-14 11:51 | PDOCDIS ---
Discharge Instructions CONDITION Patient Condition: Stable HOME CARE INSTRUCTIONS: Diet Instructions: Low Fat /Cholesterol ACTIVITY: Activity Restrictions: Slowly Increase Activity FOLLOW UP/APPOINTMENTS Follow-up Plan Please make your appointment with the neurologist in the next 1 week, we will provide you with the office phone number and address. Please follow-up with your regular doctor in the next 2 weeks as well. KENRICK GORE May 14, 2017 11:51
--- NOTE | 2017-05-14 11:57 | DS ---
Date/Time of Note Date/Time of Note DATE: 05/14/17 TIME: 11:53 Discharge Summary Admission/Discharge Info Admit Date/Time May 13, 2017 at 10:55 Discharge Date/Time Discharge Diagnosis 1. Upper and lower extremity tingling: Possibly secondary to multiple sclerosis found on imaging studies, improved, awaiting outpatient follow-up to begin possible treatment for this 2. Hypertension Patient Condition: Stable Hospital Course 56 yo M with pmhx HTN, admitted here 8. for L arm and R leg tingling returns as symptoms have not resolved. Tingling not worsened by hot showers. Does think arm might be a bit clumsy. Symptoms also possibly exacerbated by tilting head downward. Pt evaluated by tele neuro in ER, no need for TPA. Of note, pt seen by neuro during admit earlier this week and symptoms thought to be more likely microvascular in origin than demyelinating. He was admitted, seen by neurology team. He underwent brain MRI that showed: Multiple foci of abnormal white matter signal predominately in the subcortical white matter of both hemispheres but also seen in the brainstem left cerebellum, several of these have a horizontal orientation concerning for possible demyelinating disease. Few small areas of restricted diffusion within lesions in the posterior left frontal and parietal subcortical white matter which could be due to more active lesions. The MRI of the T-spine also showed possible demyelinating areas in T2. Since tingling symptoms improved, although not fully resolved by the time of discharge, but he was able to ambulate, tolerated p.o. diet, his blood pressure remained stable as well. After speaking with neurology team today and discussing the results of the imaging studies, they recommend outpatient follow-up in 1 week with them for possible treatment to begin for the demyelinating issues. See below for full list of discharge medications. Home Meds Reported Medications Finasteride* (Finasteride*) 5 Mg Tablet, 5 MG PO DAILY, TAB 05/14/17 Atorvastatin Calcium* (Atorvastatin Calcium*) 20 Mg Tablet, 20 MG PO QHS, #30 TAB 05/11/17 Aspirin (Low Dose Aspirin) 81 Mg Tablet.dr, 81 MG PO DAILY, #30 TAB 05/11/17 Amlodipine Besylate* (Amlodipine Besylate*) 10 Mg Tablet, 10 MG PO DAILY, #30 TAB 05/11/17 Discontinued Reported Medications Doxazosin Mesylate* (Doxazosin Mesylate*) 2 Mg Tablet, 2 MG PO DAILY, TAB 05/07/17 Hydrochlorothiazide* (Hydrochlorothiazide*) 25 Mg Tab, 25 MG PO DAILY, #30 TAB 05/07/17 Discontinued Scripts Aspirin (Aspirin) 81 Mg Chew, 81 MG PO DAILY, #100 TAB Prov:VANESSA CORONA MD 05/09/17 Atorvastatin Calcium (Atorvastatin Calcium) 20 Mg Tablet, 20 MG PO QHS, #90 TAB Prov:VANESSA CORONA MD 05/09/17 Amlodipine Besylate* (Amlodipine Besylate*) 10 Mg Tablet, 10 MG PO DAILY, #90 TAB Prov:VANESSA CORONA MD 05/09/17 Cephalexin* (Keflex*) 500 Mg Capsule, 500 MG PO QID for 7 Days, CAP Prov:MARS EVANS PA-C 06/04/15 Ibuprofen* (Motrin*) 600 Mg Tab, 600 MG PO Q6, #20 TAB Prov:MARS EVANS PA-C 06/04/15 Mupirocin* (Bactroban*) 2% -22 Gram Oint...g., 1 APPLIC TOP BID for 7 Days, EA Prov:IZZY MCKNIGHT PA-C 05/25/15 Hydrocodone Bit-Acetaminophen* ([place]*) 5-325 Mg Tab, 1 TAB PO Q6 Y for PAIN, # 20 TAB Prov:IZZY MCKNIGHT PA-C 05/25/15 Cephalexin* (Keflex*) 500 Mg Capsule, 500 MG PO QID for 10 Days, CAP Prov:IZZY MCKNIGHT PA-C 05/25/15 Primary Care Provider [facility] Pending Labs Laboratory Tests Test 05/13/17 12:07 CSF Tubes Submitted 3 CSF Volume 7.0ml CSF Appearance CLEAR CSF Color COLORLESS CSF WBC 3/cmm (0-10) CSF RBC 0/uL (0-0) CSF Cell Count Tube # TUBE#3 CSF Mononuclear Cells % (Auto) 66.7% CSF Polynuclear WBCs (%) 33.3% CSF Glucose 58mg/dl (50-80) CSF Total Protein 69mg/dl (12-60) KENRICK GORE May 14, 2017 11:57
[2017-05-18 23:23] LABS: OLIGOCLONAL BANDS, CSF BANDS NOTED (NO BANDS)
== END 2017-05-14 12:40 | disposition home or self-care (01) | DRG 60 ==
LOC: E/R 13:58 → TEL 16:43 → MS2 05-12 20:39 → OBSVTOIN 05-13 10:55
PROVIDERS: ADMIT Internal Medicine; ATTEND Internal Medicine
PROC: 009U3ZX Drainage of Spinal Canal, Percutaneous Approach, Diagnostic (ICD-10-PCS; principal; 2017-05-13)
PROC: B01B1ZZ Fluoroscopy of Spinal Cord using Low Osmolar Contrast (ICD-10-PCS; 2017-05-13)
DX: G35 Multiple sclerosis (principal); I10 Essential (primary) hypertension; R20.2 Paresthesia of skin; G37.9 Demyelinating disease of central nervous system, unspecified
CPT/HCPCS: 36415; 70450; 70553; 71010; 72156; 72157; 80048; 82040; 82042; 82784; 82945; 82962; 83873; 83916; 84157; 84484; 85025; 85610; 85730; 89051; 93005; 96372; 97161; 99217; G0378; J1650

== ENCOUNTER 2017-05-15 15:13 | Outpatient (CLI) | payer OTHER ==
[~2017-05-15] VITALS: Ht 162.6 cm; Wt 77.3 kg
[~2017-05-15 15:13] MED LIST changes: +ASPI-664 PO; -ASPI81TA3 PO; +ATOR20TA38 PO; -ATOR20TA65 PO; -CEPH-443 PO; -DOXA2TAB PO; +FINA5TAB4 PO; -HYD25 PO; -HYDR-3498 PO; -IBUP-1542 PO; -MUPI22OI2 TOP
[2017-05-15 15:25] VITALS: BP 152/70; PULSE 83; RESP 18; Ht 162.6 cm; Wt 77.3 kg
--- NOTE | 2017-05-15 16:18 | PN ---
Date/Time of Note Date/Time of Note DATE: 05/15/17 TIME: 16:13 Outpatient Progress Note Chief Complaint Left arm and right leg numbness/hypertension/hyperlipidemia HPI Left arm and right leg numbness/patient was recently hospitalized, patient had right leg and left arm numbness, improving slowly, patient had workup, and had possible multiple sclerosis, patient will be seen by neurologist, Hypertension/no headache or dizziness or lightheadedness, no seizure, Hyperlipidemia/no xanthoma, on medication, Review of Systems Const: No Fever, no chills, no Wt. loss, no Fatigue, normal appetite, no diaphoresis. Eyes: No pain, no discharge, no redness, no visual change, no foreign body. ENT: No pain, no bleeding, no congestion, no sore throat, no dysphagia, no discharge or rhinitis. Lymph: No adenopathy, no tender nodes, no lymphedema. Resp: No SOB, no cough, no sputum, no wheezing, no chest pain. CV: No chest pain, no palpitaions, no SESAY, no PND, no edema. GI: Normal appetite, no pain, no nausea, no vomiting, no diarrhea, no blood, no constipation. : No frequency, no urgency, no dysuria, no hematuria, no flank pain, no discharge, no bleeding. Musc: No bone/joint pain, no back pain, no neck pain, no knee pain, no restricted ROM. Skin: No rash, no skin lesions, no erythema, no laceration, no bruising, no pruritus. Neuro: No HARD[place]ICK, no dizziness, no syncope, no seizure, no focal-weakness. Left arm and right leg numbness, improving slowly, Endo: No polyuria, no polydypsia, no dry-skin, no temp-intolerance. Psych: No hallucinations, no depression, no anxiety, no suicidal ideation. Ext: No edema, no pain, no ulcer, left arm and right leg numbness, no difficulty in walking, Physical Exam Vital Signs Date Time Temp Pulse Resp B/P Pulse Ox O2 Delivery O2 Flow Rate FiO2 05/15/17 15:25 98.3 83 18 152/70 98 Room Air General Appearance: A 56 year-old male who appears well-developed, well- nourished, in no acute distress. HEENT: Head normocephalic, atraumatic. Pupils equal, round, reactive to light and accommodate. Sclerae are no jaundice. Nasal turbinates pink without erythema or nasal discharge. Mucous membranes pink and moist without lesions. Oropharynx clear without any exudate or discharge. NECK: Supple. Trachea midline, No thyromegaly, No cervical lymphadenopathy, No mass, No carotid bruits, No JVD, Carotid pulses 2+ bilaterally. PULMONARY: Clear to auscultaion bilaterally, No retractions, Chest expansion symmetric bilaterally, no rales, no ronchi, no dulness on percussion. CARDIAC: Normal SI and S2, Regular rate and rythm, no murmur, gallop, or rub. GASTROINTESTINAL: Abdomen is soft, non-tender, Non Rigid, No distention, Positive bowel sounds x4 quadrants, Liver normal. SKIN: Warm, dry, no rash, no bruise, no echmosis. EXTREMITIES: Bilateral lower extremities normal, no edema, no phlabitus, pulse palpable, no contracture. MUSCULOSKELETAL: Spine Normal, Non-tender, Normal range of motion, No swelling, no deformity, no clubbing, or cyanosis, the patient has no edema to bilateral lower extremities, dorsalis pedis pulses palpable bilaterally. NEUROLOGIC: The patient is awake, alert, oriented, responding to yes/no questions appropriately, moving all extremities, left arm right leg numbness improving, cranial nerve intact, normal strenght, normal power, normal coordination, normal gait. Allergies Coded Allergies: No Known Allergy (Unverified , 05/11/17) PMH Hypertension/hyperlipidemia/possible MS Social Hx No drinking, no drugs, no smoking, Family Hx Noncontributory Patient History: Endocrine and metabolic disease 31 MOTHER G8 [place] Assessment/Plan Impression Left arm numbness and right leg numbness Hypertension poorly controlled Possible MS Plan Patient education done about MS and hypertension, fall precaution, discussed with the patient and family if any changes to let us know, Neurological evaluation and appointment, will start workup, We will check the blood pressure again, monitor closely, will adjust the blood pressure medication accordingly, continue medication for lipid, Medications Home Meds Reported Medications Finasteride* (Finasteride*) 5 Mg Tablet, 5 MG PO DAILY, TAB 05/14/17 Atorvastatin Calcium* (Atorvastatin Calcium*) 20 Mg Tablet, 20 MG PO QHS, #30 TAB 05/11/17 Aspirin (Low Dose Aspirin) 81 Mg Tablet.dr, 81 MG PO DAILY, #30 TAB 05/11/17 Amlodipine Besylate* (Amlodipine Besylate*) 10 Mg Tablet, 10 MG PO DAILY, #30 TAB 05/11/17 Discontinued Reported Medications Doxazosin Mesylate* (Doxazosin Mesylate*) 2 Mg Tablet, 2 MG PO DAILY, TAB 05/07/17 Hydrochlorothiazide* (Hydrochlorothiazide*) 25 Mg Tab, 25 MG PO DAILY, #30 TAB 05/07/17 Discontinued Scripts Aspirin (Aspirin) 81 Mg Chew, 81 MG PO DAILY, #100 TAB Prov:VANESSA CORONA MD 05/09/17 Atorvastatin Calcium (Atorvastatin Calcium) 20 Mg Tablet, 20 MG PO QHS, #90 TAB Prov:VANESSA CORONA MD 05/09/17 Amlodipine Besylate* (Amlodipine Besylate*) 10 Mg Tablet, 10 MG PO DAILY, #90 TAB Prov:VANESSA CORONA MD 05/09/17 Cephalexin* (Keflex*) 500 Mg Capsule, 500 MG PO QID for 7 Days, CAP Prov:MARS EVANS PA-C 06/04/15 Ibuprofen* (Motrin*) 600 Mg Tab, 600 MG PO Q6, #20 TAB Prov:MARS EVANS PA-C 06/04/15 Mupirocin* (Bactroban*) 2% -22 Gram Oint...g., 1 APPLIC TOP BID for 7 Days, EA Prov:IZZY MCKNIGHT PA-C 05/25/15 Hydrocodone Bit-Acetaminophen* ([place]*) 5-325 Mg Tab, 1 TAB PO Q6 Y for PAIN, # 20 TAB Prov:IZZY MCKNIGHT PA-C 05/25/15 Cephalexin* (Keflex*) 500 Mg Capsule, 500 MG PO QID for 10 Days, CAP Prov:IZZY MCKNIGHT PA-C 05/25/15 JOYCE CORONA MD May 15, 2017 16:18
== END 2017-05-15 16:43 | disposition home or self-care (01) ==
LOC: DCC 15:13
PROVIDERS: ATTEND Internal Medicine
DX: I10 Essential (primary) hypertension (principal); R20.0 Anesthesia of skin; E78.5 Hyperlipidemia, unspecified

== ENCOUNTER → 2017-05-29 | Outpatient (CLI) | payer OTHER ==
[~2017-05-29] VITALS: Ht 162.6 cm; Wt 78.6 kg
[2017-05-29 11:26] VITALS: Ht 162.6 cm; Wt 78.6 kg
[2017-05-29 11:27] VITALS: BP 129/72; PULSE 80; RESP 18
--- NOTE | 2017-05-29 11:35 | PN ---
Date/Time of Note Date/Time of Note DATE: 05/29/17 TIME: 11:32 Outpatient Progress Note Chief Complaint Numbness/hypertension/hyperlipidemia HPI Numbness/patient has numbness of left arm and right leg, and patient has also off-and-on spasm, last for 2-3 minutes, Hypertension/no headache or dizziness, no local focal weakness, no impaired vision, Hyperlipidemia/no xanthoma, on medication,, Review of Systems Const: No Fever, no chills, no Wt. loss, no Fatigue, normal appetite, no diaphoresis. Eyes: No pain, no discharge, no redness, no visual change, no foreign body. ENT: No pain, no bleeding, no congestion, no sore throat, no dysphagia, no discharge or rhinitis. Lymph: No adenopathy, no tender nodes, no lymphedema. Resp: No SOB, no cough, no sputum, no wheezing, no chest pain. CV: No chest pain, no palpitaions, no SESAY, no PND, no edema. GI: Normal appetite, no pain, no nausea, no vomiting, no diarrhea, no blood, no constipation. : No frequency, no urgency, no dysuria, no hematuria, no flank pain, no discharge, no bleeding. Musc: Mild hip pain, no back pain, no neck pain, no knee pain, no restricted ROM. Skin: No rash, no skin lesions, no erythema, no laceration, no bruising, no pruritus. Neuro: No HARDWICK, no dizziness, no syncope, no seizure, tingling and numbness on the left arm and right leg, and occasional spasm, last for 3 minutes, Endo: No polyuria, no polydypsia, no dry-skin, no temp-intolerance. Psych: No hallucinations, no depression, no anxiety, no suicidal ideation. Ext: No edema, no pain, no ulcer, no weakness. Physical Exam Vital Signs Date Time Temp Pulse Resp B/P Pulse Ox O2 Delivery O2 Flow Rate FiO2 05/29/17 11:27 98.9 80 18 129/72 97 Room Air General Appearance: A 56 year-old male who appears well-developed, well- nourished, in no acute distress. HEENT: Head normocephalic, atraumatic. Pupils equal, round, reactive to light and accommodate. Sclerae are no jaundice. Nasal turbinates pink without erythema or nasal discharge. Mucous membranes pink and moist without lesions. Oropharynx clear without any exudate or discharge. NECK: Supple. Trachea midline, No thyromegaly, No cervical lymphadenopathy, No mass, No carotid bruits, No JVD, Carotid pulses 2+ bilaterally. PULMONARY: Clear to auscultaion bilaterally, No retractions, Chest expansion symmetric bilaterally, no rales, no ronchi, no dulness on percussion. CARDIAC: Normal SI and S2, Regular rate and rythm, no murmur, gallop, or rub. GASTROINTESTINAL: Abdomen is soft, non-tender, Non Rigid, No distention, Positive bowel sounds x4 quadrants, Liver normal. SKIN: Warm, dry, no rash, no bruise, no echmosis. EXTREMITIES: Bilateral lower extremities normal, no edema, no phlabitus, pulse palpable, no contracture. MUSCULOSKELETAL: Spine Normal, Non-tender, Normal range of motion, No swelling, no deformity, no clubbing, or cyanosis, the patient has no edema to bilateral lower extremities, dorsalis pedis pulses palpable bilaterally. NEUROLOGIC: The patient is awake, alert, oriented, responding to yes/no questions appropriately, moving all extremities, mildly impaired sensation right leg, and minimal on the left arm, cranial nerve intact, normal strenght, normal power, normal coordination, normal gait. Allergies Coded Allergies: No Known Allergy (Unverified , 05/11/17) PMH No change Social Hx No change Family Hx No change Patient History: Endocrine and metabolic disease 31 MOTHER G8 [place] Assessment/Plan Impression Neuropathy/rule out MS Hypertension controlled Hyperlipidemia on medication, Plan Patient education done, fall precaution, Patient encouraged to follow with the primary care physician, Patient also will be seen by neurologist, will try to arrange from here or primary care physician to arrange it, Patient has all the medication, no need for refill at present, Medications Home Meds Reported Medications Finasteride* (Finasteride*) 5 Mg Tablet, 5 MG PO DAILY, TAB 05/14/17 Atorvastatin Calcium* (Atorvastatin Calcium*) 20 Mg Tablet, 20 MG PO QHS, #30 TAB 05/11/17 Aspirin (Low Dose Aspirin) 81 Mg Tablet., 81 MG PO DAILY, #30 TAB 05/11/17 Amlodipine Besylate* (Amlodipine Besylate*) 10 Mg Tablet, 10 MG PO DAILY, #30 TAB 05/11/17 JOYCE CORONA MD May 29, 2017 11:35
== END | disposition home or self-care (01) ==
LOC: DCC 11:18
PROVIDERS: ATTEND Internal Medicine
DX: G62.9 Polyneuropathy, unspecified (principal); I10 Essential (primary) hypertension; E78.5 Hyperlipidemia, unspecified